=== PATIENT | male | born 1960 | race African-American/Black ===

== ENCOUNTER 2017-08-08 10:24 | Outpatient (CLI) | payer OTHER ==
[2014-05-11 16:26] VITALS: BP 132/82
== END 2017-08-08 10:25 ==
LOC: RT 10:24
PROVIDERS: ATTEND Nurse Practitioner Family
DX: Z13.9 Encounter for screening, unspecified (principal)

== ENCOUNTER 2018-05-19 09:05 | Day surgery (SDC) | payer OTHER ==
[2014-05-11 16:26] VITALS: BP 132/82
[~2018-05-19 09:05] MED LIST: SALINE FLUSH 10 ML DISP.SYRIN IVF ONE
[2018-05-19] MEDS ORDERED: LIDOCAINE HCL/PF 2% 100 MG/5 ML VIAL IJ ONE (10:00)
[2018-05-19] MEDS ORDERED: LACTATED RINGERS 1,000 ML IV ONE (10:00)
[2018-05-19] MEDS ORDERED: PROPOFOL 200 MG/20 ML VIAL IV ONE (10:00)
--- NOTE | 2018-05-21 09:14 | GI Report ---
REFERRING PHYSICIAN: KIM Mcbride CLUTCH OPERATOR: Maximino Gilmore MD PROCEDURE MEDICATION: Propofol as per anesthesia. INDICATIONS: Patient is a 57-year-old man who came for a colonoscopy. This is his first. He denies a family history of colorectal cancer. He denies any changes in his stool or bleeding. Patient did have a heart stent after his OH a couple of years ago and he did stop smoking. PROCEDURE PERFORMED: Colonoscopy. PROCEDURE: An Olympus video colonoscope was advanced to the rectum and slowly advanced all the way to the cecum. The appendiceal orifice and ileocecal valve were normal. On slow withdrawal, the cecum, ascending colon, and transverse colon with no obvious intraluminal lesions noted. The descending colon and sigmoid with no obvious intraluminal lesions noted. Retroflexion of the rectum was normal. Note: Patient was a fine threshold between needing medication and not wanting to breathe. He did require a little bit of Ambu bag to improve ventilation until he awakened a little more but tolerated that well. FINDINGS: 1. Normal colon mucosa to the cecum. 2. Fine sensitivity between apnea and discomfort during a procedure. A very fine little margin. RECOMMENDATIONS: 1. Increase fiber in the diet. 2. Consider re-looking at his colon within 10 years. cc: KIM Mcbride [facility]PITALCarmen
== END 2018-05-19 09:06 ==
LOC: OPSURG 09:05
PROVIDERS: ATTEND Internal Medicine Gastroenterology
DX: Z12.11 Encounter for screening for malignant neoplasm of colon (principal)
CPT/HCPCS: 45378; S1016

== ENCOUNTER 2019-06-08 04:39 | Emergency (ER) | payer OTHER ==
[2019-06-08] MEDS: ASPIRIN 81 MG CHEW TAB PO ONE (05:30)
--- NOTE | 2019-06-08 05:35 | Diagnostic Imaging Report ---
PATIENT MR#: [id number] PATIENT PATIENT NAME: HERBER CROSS DATE OF : 1960 REFERRING PHYSICIAN: Wilma Mckeon EXAM DATE: 06/08/2019 ACCESSION NUMBER: [id number] EXAM DESCRIPTION: CHEST 1VIEW Ap portable upright radiographs of the chest Clinical history: Chest pain Technique: anterior /posterior portable upright Findings: The lung hansen are clear. The heart and mediastinal structures are normal. The bony thorax is unremarkable. No pneumothorax or pleural effusion is seen. Impression: No acute pulmonary disease Read by: Dr. Lisandro Carver Transcribed by: Transcribed Date: Electronically signed by: Dr. Lisandro Carver Date signed: 06/08/2019 5:34:54 AM
--- NOTE | 2019-06-08 05:38 | ED Physician Documentation ---
Chest Pain - HPI Stated Complaint: "I had a burning in my chest abouit 2am today and it is now gone" Chief Complaint: Chest Pain Onset: hours (3) Timing: sudden onset Duration: other (gone now ) Last known Well Date: 06/08/19 Last Known Well Time: 02:00 Context: rest Severity: mild Quality: burning Chest Pain Radiation: jaw Chest Pain Signs/Symptoms: denies: nausea, vomiting, diaphoresis, cool extremities, dizziness, dyspnea, tachypnea Worsened By: nothing Relieved By: nothing Further Comments: yes (He states that he was getting ready a little before 3 am and he noted burning in his chest with jaw pain so he continued to get ready for work this all passed in a few min however driving to work he felt now he better have this checked out due to his history of stents in his heart in 2012. he did not have any shortness of air or sweating. He did note beans and BBQ for dinner last night but does not have heartburn. He denies any current complaints) - ROS CONST: none - PAST HX AR risk factors: AMI TAD/AAA risk factors: none Neuro deficit: none GI disease: none Surgeries/Procedures: cardiac stent Immunizations: UTD Allergies/Adverse Reactions: Allergies Allergy/AdvReac Type Severity Reaction Status Date / Time No Known Drug Allergies Allergy Verified 06/08/19 05:26 Home Medications: Ambulatory Orders Medication Instructions Recorded Aspirin [Aspirin Ec] 81 mg PO DAILY u2 05/21/14 Metoprolol Tartrate [Lopressor] 25 mg PO BID u2 05/21/14 Rosuvastatin Calcium [Crestor] 40 mg PO DAILY u2 05/21/14 Ticagrelor [Brilinta] 90 mg PO Q12 u2 05/21/14 - SOCIAL HX Smoking History: non-smoker Alcohol Use: occasionally Drug Use: none - FAMILY HX Family HX: none - VITAL SIGNS Vital Signs: Vital Signs Temp Pulse Resp BP Pulse Ox 98.5 F 79 16 132/81 100 06/08/19 05:00 06/08/19 05:00 06/08/19 05:00 06/08/19 05:00 06/08/19 05:00 - REVIEWED ASSESSMENTS Nursing Assessment Reviewed: Yes Vitals Reviewed: Yes ED Results Lab/Radiology - Orders Orders: ED Orders Category Date Time Status Continuous EKG monitoring Q1H Care 11/11/19 05:21 Active IV Started NOW Care 06/08/19 05:21 Active CHEST 1VIEW [RAD] Stat Exams 06/08/19 Completed CBC/PLATELET/DIFF Stat Lab 06/08/19 05:21 Received CMP Stat Lab 06/08/19 05:20 Received TROPONIN I Stat Lab 06/08/19 05:20 Received Aspirin [Yahaira] Med 06/08/19 05:22 Discontinued 324 mg PO NOW ONE Oxygen Daily Oxygen 06/08/19 05:30 Ordered EKG WITH COMPARISON Stat Ther 06/08/19 Ordered Chest Pain Physical Exam - EXAM General Appearance: no acute distress, alert EENT: eye inspection normal, ENT inspection normal, no signs of dehydration Neck: nml inspection Respiratory: no resp. distress, chest non-tender, nml breath sounds CVS: reg. rate & rhythm, no murmur Abdomen: soft, normal bowel sounds, no distension Skin: warm/dry, normal color Extremities: non-tender, normal range of motion, no evidence of injury, no edema Neuro: oriented X3 Discharge Clincal Impression: Chest pain Referrals: Lili Machuca FNP [Primary Care Provider] - 2 Days Comments: 1. Continue home meds 2. Follow up with PCP 3. Return to ER for any increased concerns Condition: Stable Disposition: 01 HOME, SELF-CARE Decision to Admit: NO Date of Decison to Admit: 06/08/19 Decision Time: 06:19
[2019-06-08 05:54] LABS: BASOPHILS % 0.4 % (0.0-1.5); NEUTROPHILS # 3.5 # k/uL (1.4-7.7)
[2019-06-08 05:55] LABS: eGFR (Non-African) > 60
[2019-06-08 06:29] VITALS: BP 142/76
== END 2019-06-08 06:35 | disposition home or self-care (01) ==
LOC: ED 04:39
DX: R07.9 Chest pain, unspecified (principal)
CPT/HCPCS: 71045; 80053; 84484; 85025; 93005; 99282; 99283; S1016